=== PATIENT | male | born 1930 | race Caucasian/White ===

== ENCOUNTER 2017-04-17 20:45 | Inpatient (IN) | payer OTHER, MEDICAID ==
[~2017-04-17] VITALS: Ht 172.7 cm; Wt 66.2 kg
[~2017-04-17 20:45] MED LIST: ACET-868 PO; ALEN70TA3 PO; CARV12.5 PO; CEFT1VIA6 IV; DUTA0.5C PO; ENOX80DI SQ; FERR1TAB44 PO; FURO-145 PO; ISOS20TA8 PO; MULT-331 PO; SIMV20TA2 PO; WARF3TAB6 PO
--- NOTE | 2017-04-17 20:45 | NUR ---
PT BBRA FROM HOME WITH C/O "MORE ALTERED THAN USUAL SINCE 1800". PT AAOX1. PT IS CONTRACTED IN THE ARMS AND HANDS. NO OBVIOUS DEFORMITIES NOTED. PT ABLE TO FOLLOW AND TRACK WITH EYES. RESP EVEN AND UNLABORED. NO S/S OF ACUTE DISTRESS NOTED. PT GOWNED AND PLACED ON CARDAIC MONITOR AND POX. SON BEDSIDE WITH PT. AWAITING MD FOR EVAL.
[2017-04-17 21:45] LABS: APPEARANCE,URINE Slightly Cloudy (CLEAR); BILIRUBIN,URINE Negative (NEGATIVE); BLOOD, URINE Trace-intact Ery/uL (NEGATIVE); COLOR,URINE Yellow (YELLOW); KETONES,URINE 15 (NEGATIVE); LEUKOCYTE ESTERASE ,URINE Negative (NEGATIVE); NITRITE, URINE Negative (NEGATIVE); PH,URINE 5.5 (5.0-8.0); PROTEIN,URINE >=300 mg/dl (NEGATIVE); UGLUCOSE Negative (NEGATIVE)
[2017-04-17 21:54] LABS: BACTERIA,URINE Moderate /HPF (None Seen); SQUAMOUS EPITHELIAL CELL,UR Few /HPF (None Seen); WBC,URINE 0-2 /HPF (0-3)
[2017-04-17] MEDS ORDERED: IV NS 0.9% 1,000 ML BAG IV ONE (22:00)
[2017-04-17] MEDS ORDERED: AMIODARONE 150 MG/3 ML VIAL IV ONE ×4 (22:00→22:06)
--- NOTE | 2017-04-17 22:03 | NUR ---
PT TRANSPORTED OT RADIOLOGY FOR CT HEAD.
[2017-04-17 22:13] LABS: EOSINOPHILS % (AUTO) 0.1 % (0.0-6.0); HEMATOCRIT 40 % (39-51); HEMOGLOBIN 13.1 g/dL (13.5-17.5); LYMPHOCYTES # (AUTO) 0.2 /CMM (0.8-4.8); LYMPHOCYTES % (AUTO) 1.5 % (20.0-44.0); MEAN CORPUSCULAR HEMOGLOBIN 30 PG (26.0-33.0); MEAN CORPUSCULAR HGB CONC 33 g/dl (31.0-36.0); MEAN CORPUSCULAR VOLUME 91 fL (80-96); MONOCYTES # (AUTO) 0.2 /CMM (0.1-1.30); MONOCYTES % (AUTO) 1.6 % (2.0-12.0); NEUTROPHILS # (AUTO) 14.2 /CMM (1.8-8.9); NEUTROPHILS % (AUTO) 96.8 % (43.0-81.0); PLATELET COUNT (AUTO) 185 /CMM (150-450); RDW COEFFICIENT OF VARIATION 18.7 (11.5-15.0); RED BLOOD CELL COUNT(AUTO) 4.37 MIL/uL (4.5-6.0); WHITE BLOOD COUNT (AUTO) 14.7 K/uL (4.3-11.0)
[2017-04-17 22:31] LABS: TROPONIN I 0.109 ng/mL (0.00-0.056)
[2017-04-17 22:36] LABS: CARBON DIOXIDE 26 mmol/L (21-32); CHLORIDE 108 mmol/L (98-107); CREATININE 1.4 mg/dL (0.6-1.3); GLUCOSE 112 mg/dL (74-106); SODIUM SERUM 145 mmol/L (136-145); UREA NITROGEN, BLOOD 25 mg/dL (7-18)
[2017-04-17 22:39] LABS: ALANINE AMINOTRANSFERASE 22 U/L (12-78); ALBUMIN 2.9 g/dL (3.4-5.0); ALKALINE PHOSPHATASE 88 U/L (46-116); ASPARTATE AMINOTRANSFERASE 23 U/L (15-37); BILIRUBIN,DIRECT 0.6 mg/dL (0.0-0.2); BILIRUBIN,TOTAL 1.8 mg/dL (0.2-1.0); TOTAL PROTEIN, SERUM 7.5 g/dL (6.4-8.2)
[2017-04-17] MEDS ORDERED: NITROGLYCERIN PACKET 1 GM PACKET TD ONE (23:00)
[2017-04-17] MEDS ORDERED: ASPIRIN 300 MG/SUPP.RECT RC ONE ×2 (23:00→23:21)
[2017-04-17] MEDS ORDERED: LEVOFLOXACIN 750 MG /D5W 150ML PIGGYBACK IV ONE (23:00)
--- NOTE | 2017-04-17 23:07 | NUR ---
[facility] WAS CALLED AND SPOKE TO JUANPABLO, FOR A MD TO MD CALL.
[2017-04-17 23:09] LABS: INR 1.73 (0.87-1.13)
--- NOTE | 2017-04-17 23:10 | NUR ---
Patient is resting comfortably in bed with eyes closed. Easily aroused. VSS
--- NOTE | 2017-04-17 23:18 | NUR ---
ER TALKING TO MAKENNA RANDALL ACNLaura REGARDING PT ADMISSION. WILL CALL FOR REPORT WHEN BED IS AVAILABLE.
[2017-04-17] MEDS ORDERED: LEVOFLOXACIN 750 MG /D5W 150ML 150 ML IV ONE (23:20)
[2017-04-17] MEDS ORDERED: NITROGLYCERIN PACKET 1 GM PACKET ONE (23:20)
--- NOTE | 2017-04-17 23:50 | NUR ---
REPORT GIVEN TO JON REMI FONTAINE FOR INDIO. PT BEING PREPARED FOR TRANSPORT TO ROOM 105. EMT BEDSIDE.
--- NOTE | 2017-04-18 | NUR ---
COUNTY DIRECTOR WELFARE NOTES RECEIVED PATIENT FROM ER VIA GURNEY, TRANSFERRED TO BED, PATIENT TOLERATED TRANSFER WELL. PATIENT A/O X1, NONVERBAL, SOMETIMES GRUNTS WHEN IN PAIN. CURRENTLY ON O2 VIA NC @ 2LPM, TOLERATING WELL FREE FROM ANY S/S OF RESPIRATORY DISTRESS. ON TELEMETRY MONITORING, REVEALING UNCONTROLLED AFIB, CURRENTLY ON AMIODARONE DRIP @ 1MG/MIN. IV SITES PATENT AND INTACT, FLUSHED WITH NS, BOTH IV SITES FREE FROM ANY S/S OF INFILTRATION OR PHLEBITIS. SKIN ASSESSMENT DONE, ALL SKIN ISSUES PHOTOGRAPHED AND DOCUMENTED PER PROTOCOL. CALL LIGHT LEFT WITHIN EASY REACH, BED IN LOWEST AND LOCKED POSITION. WILL CONTINUE TO CLOSELY MONITOR
--- NOTE | 2017-04-18 | NUR ---
RN NOTES PER REPORT FROM ER NURSE MAURICIO, CONTINUE AMIODARONE DRIP
[2017-04-18] MEDS ORDERED: ZOLPIDEM TARTRATE 5 MG TABLET PO PRN (01:00)
[2017-04-18] MEDS ORDERED: ONDANSETRON HCL/PF 4 MG/2 ML VIAL IVP PRN (01:00)
[2017-04-18] MEDS ORDERED: MAGNESIUM HYDROXIDE 30 ML UDC PO PRN (01:00)
[2017-04-18] MEDS ORDERED: ACETAMINOPHEN 325 MG TABLET PO PRN (01:00)
[2017-04-18] MEDS ORDERED: MAG HYDROX/AL HYDROX/SIMETH 30 ML UDC PO PRN (01:00)
[2017-04-18] MEDS ORDERED: ENOXAPARIN SODIUM 40 MG/0.4 ML DISP.SYRIN SQ SCH ×2 (01:00→21:00)
[2017-04-18] MEDS ORDERED: HYDROCODONE/APAP 5/325MG 1 EACH TABLET PO PRN (01:00)
[2017-04-18] MEDS ORDERED: Z GUARD REMEDY 2 OZ OINT TP PRN (01:00)
[2017-04-18] MEDS ORDERED: LEVE500T9 PO (01:10)
[2017-04-18] MEDS: IV NS 0.9% 1,000 ML IV PRN (01:26)
[2017-04-18 01:27] LABS: ABG BASE EXCESS 1.9 mmol/L; ABG OXYGEN SATURATION 96.2 % (92.0-98.5); ABG PCO2 34.6 mmHg (35.0-45.0); ABG PH 7.478 (7.350-7.450); ABG PO2 90.6 mmHg (75.0-100.0); AaDO2 68.2 mmHg; COHb 0.8 % (0.5-1.5); MetHb 0.2 % (0.0-1.5); O2Hb 95.2 % (94.0-97.0); SITE, ABG Right Radial; VENT MODE, BG 2L N/C
[2017-04-18] MEDS ORDERED: CEFTRIAXONE 1 G VIAL ONE (02:14)
[2017-04-18] MEDS: LEVETIRACETAM (500MG) 500 MG in IV NS 0.9% 100 ML IV SCH ×2 (02:30→20:53)
[2017-04-18] MEDS: CEFTRIAXONE 1 G in IV D5W 50 ML IV SCH (02:33)
[2017-04-18] MEDS ORDERED: AMIODARONE 900 MG in IV D5W 500 ML IV PRN (03:30)
[2017-04-18 04:00] VITALS: BP 106/67
[2017-04-18] MEDS ORDERED: LEVETIRACETAM (500MG) 500 MG/5 ML VIAL IV ONE (04:08)
--- NOTE | 2017-04-18 04:46 | NUR ---
RN NOTES AMIODARONE DRIP TITRATED TO 0.5MG/MIN. PATIENT REMAINS IN AFIB, BUT RATE IS BETTER CONTROLLED COMPARED TO WHEN PATIENT ARRIVED IN JON
--- NOTE | 2017-04-18 07:00 | NUR ---
RN CLOSING NOTES PATIENT RESTING IN BED, APPEARS COMFORTABLE. CONTINUES ON AMIODARONE DRIP, REMAINS AFIB, BUT RATE IMPROVED. WILL ENDORSE THE PATIENT TO THE AM SHIFT NURSE FOR INDIO
--- NOTE | 2017-04-18 07:23 | NUR ---
RN NOTES RECEIVED PT FROM PROFESSOR OF SURGERY, A&0X1, MUMBLES WORDS. ON 2L NC SATING WELL NO SOB OR DISTRESS NOTED. A FIB ON THE TELE RAZ HR 90, AMIO DRIP INFUSING. PT CURRENTLY NPO. LFA IV SITE INTACT WITH IVF AT 60ML/HR. LFA 18G IV SITE INTACT WITH AMIO DRIP AT 0.5ML/HR. BED LOCKED AND IN LOWEST POSITION, CALL LIGHT WITHIN REACH, SIDE RAILS UPX3, WILL CONT TO RAZ.
[2017-04-18] MEDS ORDERED: AMIODARONE 900 MG in IV D5W 482 ML IV PRN (07:30)
[2017-04-18 08:00] VITALS: BP 111/83
[2017-04-18] MEDS ORDERED: LEVETIRACETAM (250 MG) 250 MG TABLET PO SCH (09:00)
[2017-04-18] MEDS: MULTIVIT, IRON, MIN NO. 8, FA 1 TAB PO SCH (09:00)
[2017-04-18] MEDS ORDERED: CARVEDILOL 12.5 MG TABLET PO SCH (09:00)
[2017-04-18] MEDS ORDERED: DUTASTERIDE (0.5 MG) 0.5 MG CAPSULE PO SCH (09:00)
--- NOTE | 2017-04-18 09:00 | NUR ---
RN NOTES AMIO DRIP STOPPED BY DR HIGGINS, PT STARTED ON COREG, PT ALLERGIC TO BETA BLOCKERS PER SON. SON CALLED VERIFIED ALLERGY. PT'S SON KELSEY MADE A MISTAKE, PT IS ALLERGIC TO VJ INHIBITORS NOT BETA BLOCKERS. DR HIGGINS AND PHARMACY MADE AWARE.
[2017-04-18 09:47] LABS: MAGNESIUM 2.2 mg/dL (1.8-2.4); PHOSPHORUS 2.5 mg/dL (2.5-4.9)
--- NOTE | 2017-04-18 10:00 | NUR ---
RN NOTES 0900 AM MEDS HELD, WAITING FOR SWALLOW EVAL. SPEECH THERAPIST PAGED.
[2017-04-18] MEDS: CARVEDILOL 12.5 MG TABLET PO SCH ×2 (11:00→20:54)
--- NOTE | 2017-04-18 11:19 | NUR ---
RN NOTES PT FAILED SWALLOW EVAL. AM MEDS HELD. WILL NOTIFY GERIATRIC NURSE ASSISTANT DEMETRIS SILVA.
[2017-04-18 11:27] LABS: THYROID STIMULATING HORMONE 0.883 uIU/mL (0.358-3.74)
[2017-04-18] MEDS: ACETYLCYSTEINE 10% SOLN 400 MG/4 ML VIAL NEB SCH ×3 (11:30→23:30)
[2017-04-18] MEDS: DIGOXIN INJ 0.5 MG/2 ML AMPUL IV SCH ×2 (11:41→17:13)
[2017-04-18 12:00] VITALS: BP 123/86
[2017-04-18] MEDS: IPRATROPIUM NEB FS 0.5 MG/2.5 ML AMPUL.NEB NEB SCH ×2 (13:19→20:07)
[2017-04-18] MEDS ORDERED: DIGO250A9 IV (14:45)
[2017-04-18] MEDS ORDERED: ACETAMINOPHEN 650 MG/SUPP.RECT RC PRN (15:00)
[2017-04-18 16:00] VITALS: BP_SYST 125; BP_SYST 127; BP_DIAS 53; BP_DIAS 82
[2017-04-18] MEDS ORDERED: WARFARIN SODIUM 1 MG TABLET PO SCH (17:00)
--- NOTE | 2017-04-18 19:30 | NUR ---
EDGING CATCHER OPENING NOTES RECEIVED REPORT FROM JOSE FRANCISCO KHALIL. PATIENT A/A/O X1, UNABLE TO MAKE NEEDS KNOWN. BREATHING EVEN & UNLABORED, ON O2 3L VIA NC. NO S/S OF RESPIRATORY DISTRESS. ON TELE W/ CONTROLLED A-FIB, HR 80S-90S. RIGHT FA IV #18 INTACT & PATENT W/ DRESSING CDI & IVF NS @ 60 ML/HR. CURRENTLY ON BEDREST. NO S/S OF PAIN OR DISCOMFORT @ THIS TIME. SAFETY MEASURES IN PLACE W/ SIDE RAILS UP, BED LOCKED & IN LOWEST POSITION & BED ALARM ON. SON @ BEDSIDE. WILL CONTINUE TO MONITOR CLOSELY.
[2017-04-18 20:00] VITALS: BP 132/64
[2017-04-19] VITALS: BP 112/68
[2017-04-19] MEDS: CEFTRIAXONE 1 G in IV D5W 50 ML IV SCH (00:20)
[2017-04-19] MEDS: DIGOXIN INJ 0.5 MG/2 ML AMPUL IV SCH (00:21)
[2017-04-19] MEDS: IPRATROPIUM NEB FS 0.5 MG/2.5 ML AMPUL.NEB NEB SCH ×3 (01:44→14:57)
[2017-04-19 04:00] VITALS: BP 104/64
[2017-04-19 06:25] LABS: BASOPHILS % (AUTO) 0.1 % (0.0-2.0); EOSINOPHILS % (AUTO) 0.1 % (0.0-6.0); HEMATOCRIT 34 % (39-51); HEMOGLOBIN 11.3 g/dL (13.5-17.5); LYMPHOCYTES # (AUTO) 0.4 /CMM (0.8-4.8); LYMPHOCYTES % (AUTO) 3.3 % (20.0-44.0); MEAN CORPUSCULAR HEMOGLOBIN 31 PG (26.0-33.0); MEAN CORPUSCULAR HGB CONC 34 g/dl (31.0-36.0); MEAN CORPUSCULAR VOLUME 91 fL (80-96); MONOCYTES # (AUTO) 0.5 /CMM (0.1-1.30); MONOCYTES % (AUTO) 3.9 % (2.0-12.0); NEUTROPHILS # (AUTO) 10.8 /CMM (1.8-8.9); NEUTROPHILS % (AUTO) 92.6 % (43.0-81.0); PLATELET COUNT (AUTO) 152 /CMM (150-450); RDW COEFFICIENT OF VARIATION 18.9 (11.5-15.0); RED BLOOD CELL COUNT(AUTO) 3.69 MIL/uL (4.5-6.0); WHITE BLOOD COUNT (AUTO) 11.7 K/uL (4.3-11.0)
[2017-04-19 07:08] LABS: CHOLESTEROL 88 mg/dL (<200); HDL CHOLESTEROL 42 mg/dL (40-60); LDL 47 mg/dL (0-99); TRIGLYCERIDES 40 mg/dL (30-150)
[2017-04-19 07:10] LABS: CALCIUM, SERUM 8.3 mg/dL (8.5-10.1); CARBON DIOXIDE 24 mmol/L (21-32); CHLORIDE 112 mmol/L (98-107); CREATININE 1.4 mg/dL (0.6-1.3); GLUCOSE 92 mg/dL (74-106); POTASSIUM 3.4 mmol/L (3.5-5.1); SODIUM SERUM 148 mmol/L (136-145); UREA NITROGEN, BLOOD 28 mg/dL (7-18)
--- NOTE | 2017-04-19 07:13 | NUR ---
FLEET SALES MANAGER NOTES RECEIVED PT ON BED SLEEPING. ALERT ORIENTED X1. ON TELE MONITOR AFIB 70. PT ON NPO. HEAD OF BED ELEVATED. SIDE RAILS UP. CALL LIGHT WITHIN REACH. WILL CONTINUE TO MONITOR PT CLOSELY.
[2017-04-19] MEDS: ACETYLCYSTEINE 10% SOLN 400 MG/4 ML VIAL NEB SCH ×2 (07:16→14:57)
[2017-04-19 08:00] VITALS: BP 122/68
[2017-04-19] MEDS: LEVETIRACETAM (500MG) 500 MG in IV NS 0.9% 100 ML IV SCH (08:53)
[2017-04-19] MEDS: CARVEDILOL 12.5 MG TABLET PO SCH (08:53)
[2017-04-19] MEDS: MULTIVIT, IRON, MIN NO. 8, FA 1 TAB PO SCH (08:54)
[2017-04-19] MEDS: IV NS 0.9% 1,000 ML IV PRN (11:49)
[2017-04-19 12:00] VITALS: BP_SYST 117; BP_SYST 177; BP_DIAS 76
[2017-04-19] MEDS ORDERED: POTASSIUM CHLORIDE 20 MEQ POWDER PACKET PO SCH (13:00)
[2017-04-19 16:00] VITALS: BP 100/68
--- NOTE | 2017-04-19 17:37 | NUR ---
HEAD OF OPERATION AND LOGISTICS NOTES PT FOR TRANSFER TO [facility]. REPORT GIVEN TO
--- NOTE | 2017-04-19 18:36 | NUR ---
PATIENT INSURANCE CLERK NOTES PT DISCHARGED STABLE. TRANSPORTED BY AMBULANCE. REPORT GIVEN. EXIT CARE DONE.
== END 2017-04-19 18:50 | disposition short-term general hospital (02) | DRG 871 ==
LOC: ER 20:47 → TELE1 23:36 → TELE-TD 04-18 00:11 → TELE1 04-18 10:16
PROVIDERS: ADMIT Nurse Practitioner Acute Care; ATTEND Nurse Practitioner Acute Care
DX: A41.9 Sepsis, unspecified organism (principal); G93.41 Metabolic encephalopathy; I21.A1 Myocardial infarction type 2; N17.0 Acute kidney failure with tubular necrosis; E44.0 Moderate protein-calorie malnutrition; J18.9 Pneumonia, unspecified organism; R53.2 Functional quadriplegia; E88.09 Other disorders of plasma-protein metabolism, not elsewhere classified; D68.59 Other primary thrombophilia; R13.10 Dysphagia, unspecified; I13.0 Hypertensive heart and chronic kidney disease with heart failure and stage 1 through stage 4 chronic kidney disease, or unspecified chronic kidney disease; I38 Endocarditis, valve unspecified; N39.0 Urinary tract infection, site not specified; I50.20 Unspecified systolic (congestive) heart failure; I25.10 Atherosclerotic heart disease of native coronary artery without angina pectoris; I48.2 Chronic atrial fibrillation; Z86.73 Personal history of transient ischemic attack (TIA), and cerebral infarction without residual deficits; Z87.440 Personal history of urinary (tract) infections; Z87.891 Personal history of nicotine dependence; F03.90 Unspecified dementia, unspecified severity, without behavioral disturbance, psychotic disturbance, mood disturbance, and anxiety; J32.0 Chronic maxillary sinusitis; E80.6 Other disorders of bilirubin metabolism; N40.1 Benign prostatic hyperplasia with lower urinary tract symptoms; F09 Unspecified mental disorder due to known physiological condition; Z79.01 Long term (current) use of anticoagulants; J40 Bronchitis, not specified as acute or chronic; K05.6 Periodontal disease, unspecified; N18.9 Chronic kidney disease, unspecified; Z68.22 Body mass index [BMI] 22.0-22.9, adult
CPT/HCPCS: 36415; 36600; 70450-TC; 71045-TC; 80048-TC; 80061-TC; 80076-TC; 81000-TC; 82306; 82962-TC; 83605-TC; 83735-TC; 84100-TC; 84439-TC; 84443-TC; 84484-TC; 85025-TC; 85730-TC; 87040-TC; 87081-TC; 87086-TC; 92526; 92611-TC; 93307-TC; A4606; A6402; J0282; J0696; J1160; J1650; J1953; J1956; J7030; J7060; Z7610

== ENCOUNTER 2017-05-20 10:08 | Inpatient (IN) | payer OTHER, MEDICAID ==
[~2017-05-20] VITALS: Ht 170.2 cm; Wt 69.9 kg
[2017-05-20] VITALS (19 sets, daily range): BP systolic 88–116; BP diastolic 50–69
[~2017-05-20 10:08] MED LIST changes: +CARV12.5 GT; -CARV12.5 PO; +CEFT1VIA14 IV; -CEFT1VIA6 IV; +DIGO250A9 IV; -FURO-145 PO; -ISOS20TA8 PO; +LEVE500T9 GT; +SIMV20TA2 GT; -SIMV20TA2 PO; +WARF3TAB59 GT; -WARF3TAB6 PO
--- NOTE | 2017-05-20 10:08 | NUR ---
[id number] FROM HOME: S/P RESPIRATORY FAILURE x 0945AM. LAST SEEEN WELL LAST NIGHT ~ 2200. BS IN FIELD 217. PATIENT ARRIVED ON AMBU-BAG. A/OX 0, HOT TO TOUCH. GTUBE IN PLACE. PLACED ON MONITOR, SAFETY AND COMFORT MEASURES IN PLACE. MD AT BEDSIDE FOR EVAL.
--- NOTE | 2017-05-20 10:15 | NUR ---
NEW IV STARTED ON RFA, 20G. MD AT BEDSIDE FOR INTUBATION: ETOMIDATE/SUCC ADMINISTERED.
--- NOTE | 2017-05-20 10:16 | NUR ---
PATIENT INTUBATED WITH ET 7.5, 22CM AT THE LIP. POSITIVE COLOR CHANGE ON CO2 INDICATOR, BREATH SOUNDS HEARD BILATERALLY. VITALS STABLE. XRAY CALLED FOR CONFIRMATION WELL.
[2017-05-20] MEDS ORDERED: ACETAMINOPHEN 325 MG TABLET PO ONE (10:30)
[2017-05-20] MEDS ORDERED: PROPOFOL 100 ML IV PRN ×3 (10:30→13:30)
[2017-05-20] MEDS ORDERED: ETOMIDATE 2 MG/ML VIAL IV ONE (10:30)
[2017-05-20] MEDS ORDERED: SUCCINYLCHOLINE CHLORIDE 20 MG/ML VIAL IV ONE (10:30)
[2017-05-20] MEDS ORDERED: IV NS 0.9% 1,000 ML BAG IV ONE (10:30)
[2017-05-20] MEDS ORDERED: PIPERACILLIN /TAZOBACTAM 3.375 G in IV D5W 50 ML IV ONE (10:30)
[2017-05-20] MEDS ORDERED: ACETAMINOPHEN ES 500 MG TABLET ONE (10:48)
[2017-05-20 10:49] LABS: BASOPHILS # (AUTO) 0.7 /CMM (0.0-0.2); BASOPHILS % (AUTO) 4.2 % (0.0-2.0); HEMATOCRIT 35 % (39-51); HEMOGLOBIN 11.2 g/dL (13.5-17.5); LYMPHOCYTES # (AUTO) 0.8 /CMM (0.8-4.8); MEAN CORPUSCULAR HGB CONC 32 g/dl (31.0-36.0); MEAN CORPUSCULAR VOLUME 92 fL (80-96); MONOCYTES # (AUTO) 0.5 /CMM (0.1-1.30); NEUTROPHILS # (AUTO) 13.6 /CMM (1.8-8.9); NEUTROPHILS % (AUTO) 87.8 % (43.0-81.0); PLATELET COUNT (AUTO) 249 /CMM (150-450); RDW COEFFICIENT OF VARIATION 16.1 (11.5-15.0); RED BLOOD CELL COUNT(AUTO) 3.75 MIL/uL (4.5-6.0); WHITE BLOOD COUNT (AUTO) 15.6 K/uL (4.3-11.0)
[2017-05-20 11:02] LABS: INR 1.14 (0.85-1.15)
[2017-05-20 11:05] LABS: ALANINE AMINOTRANSFERASE 198 U/L (12-78); ALBUMIN 2.2 g/dL (3.4-5.0); ALKALINE PHOSPHATASE 68 U/L (46-116); ASPARTATE AMINOTRANSFERASE 214 U/L (15-37); BILIRUBIN,DIRECT 0.7 mg/dL (0.0-0.2); BILIRUBIN,TOTAL 1.1 mg/dL (0.2-1.0); CARBON DIOXIDE 27 mmol/L (21-32); CHLORIDE 102 mmol/L (98-107); CREATININE 1.4 mg/dL (0.6-1.3); GLUCOSE 171 mg/dL (74-106); SODIUM SERUM 135 mmol/L (136-145); TOTAL PROTEIN, SERUM 7.5 g/dL (6.4-8.2); UREA NITROGEN, BLOOD 42 mg/dL (7-18)
[2017-05-20 11:09] LABS: POTASSIUM 6.3 mmol/L (3.5-5.1)
[2017-05-20 11:10] LABS: TROPONIN I 0.519 ng/mL (0.00-0.056)
[2017-05-20 11:14] LABS: ABG BASE EXCESS -1.5 mmol/L; ABG OXYGEN SATURATION 96.8 % (92.0-98.5); ABG PCO2 35.9 mmHg (35.0-45.0); ABG PH 7.418 (7.350-7.450); ABG PO2 105.6 mmHg (75.0-100.0); AaDO2 282.7 mmHg; COHb 0.1 % (0.5-1.5); MetHb 0.5 % (0.0-1.5); O2Hb 96.2 % (94.0-97.0); PEEP,BG 5 cm H2O; SITE, ABG Right Radial; VENT MODE, BG A/C; VT, ABG 500 mL
--- NOTE | 2017-05-20 11:21 | NUR ---
PT INTUBATED IN ER AND PLACED ON PB 840 VENTILATOR RR 16, VT 500, FIO2 60%, PEEP 5. ETT SIZE 7.5, 22 CM AT LIPS. VENT ALARM WORKING AND AUDIBLE, RED OUTLET PLUGGED IN, AMBU BAG AT BEDSIDE. PT TOLERATES VENT SETTING.
--- NOTE | 2017-05-20 11:23 | NUR ---
VENT SETTING CONFIRMED WITH DR. STRONG AND TITRATED FIO2 TO 40%.
[2017-05-20] MEDS ORDERED: WARF1TAB86 GT (11:25)
[2017-05-20] MEDS ORDERED: DIGO125T GT (11:25)
[2017-05-20] MEDS ORDERED: SERT100T GT (11:25)
--- NOTE | 2017-05-20 11:40 | NUR ---
propofol drip stopped at this time, patient blood pressure dropping. Placed in trendelenburg, ivf running, will reassess.
[2017-05-20] MEDS ORDERED: NOREPINEPHRINE 8 MG in IV D5W 500 ML IV PRN ×2 (12:00→13:30)
[2017-05-20 12:32] LABS: BAND % (MANUAL) 3 % (0.0-5.0); LYMPHOCYTES % (MANUAL) 1 % (16-48); MONOCYTES % (MANUAL) 6 % (0-11.0); NEUTROPHILS % (MANUAL) 90 (42-76)
--- NOTE | 2017-05-20 12:38 | NUR ---
REPORT GIVEN TO REMI FRITZ FOR INDIO UPON ADMISSION.
--- NOTE | 2017-05-20 13:10 | NUR ---
LEVOPHED NOT ADMINISTERED IN ER, BLOOD PRESSURE WNL. AWARE. PATIENT TRANSPORTED TO ICU 256 VIA ACLS PROTOCOL. RNCATRINA TO PROVIDE INDIO.
--- NOTE | 2017-05-20 13:15 | NUR ---
RN INITIAL NOTES RECEIVED PT INTUBATED, ON VENT. NO RESPIRATORY DISTRESS NOTED. NO SOB NOTED. NO SIGNS OF PAIN NOTED. IV LINES IN PLACE. PT'S SBP ON 90S. FC IN PLACE. NO HEMATURIA NOTED. BODY ASSESSMENT DONE. PICTURES TAKEN AND PLACED IN THE CHART. DR. OVALLES AWARE OF ADMISSION. AWAITING FOR ORDERS. WILL CLOSELY MONITOR.
[2017-05-20 13:19] LABS: APPEARANCE,URINE Cloudy (CLEAR); BILIRUBIN,URINE SMALL (NEGATIVE); BLOOD, URINE Large Ery/uL (NEGATIVE); COLOR,URINE Dark (YELLOW); KETONES,URINE Trace (NEGATIVE); LEUKOCYTE ESTERASE ,URINE Negative (NEGATIVE); NITRITE, URINE Negative (NEGATIVE); PH,URINE 5.5 (5.0-8.0); PROTEIN,URINE >=300 mg/dl (NEGATIVE); UGLUCOSE Negative (NEGATIVE)
[2017-05-20] MEDS: NOREPINEPHRINE 16 MG in IV D5W 500 ML IV PRN ×2 (13:21→21:21)
[2017-05-20] MEDS ORDERED: FEE PK DOSING 1 MIN EA MC ONE (13:29)
[2017-05-20] MEDS ORDERED: SODIUM POLYSTYRENE SULFONATE 15 G/60 ML BOTTLE PO ONE (13:30)
[2017-05-20] MEDS ORDERED: NORMAL SALINE FLUSH 10 ML SYR IV PRN (13:30)
[2017-05-20] MEDS ORDERED: METOPROLOL TARTRATE INJ 5 MG/5 ML AMPUL IVP PRN (13:30)
[2017-05-20] MEDS ORDERED: ACETAMINOPHEN 650 MG/SUPP.RECT RC PRN (13:30)
[2017-05-20] MEDS ORDERED: ALBUTEROL FS 2.5 MG/3 ML VIAL.NEB NEB PRN (13:30)
[2017-05-20] MEDS ORDERED: ACETAMINOPHEN 325 MG TABLET PO PRN (13:30)
[2017-05-20] MEDS ORDERED: ONDANSETRON HCL/PF 4 MG/2 ML VIAL IVP PRN (13:30)
[2017-05-20] MEDS ORDERED: VANCOMYCIN 1 GM in IV NS 0.9% 250 ML IV SCH (13:30)
--- NOTE | 2017-05-20 13:30 | NUR ---
RN NOTES SEEN AND EXAMINED BY DR. OVALLES. PT INTUBATED, ON VENT. NO RESPIRATORY DISTRESS NOTED. NO SOB NOTED. NO SIGNS OF PAIN NOTED. PT REACTS TO PAIN. IV LINES IN PLACE. MD AWARE OF LAB VALUES: WBC 15.6, POTASSIUM 6.3, BUN 42, CREA 1.4. LACTIC 4.3, TROPONIN 0.519. ORDERS NOTED AND CARRIED OUT. MD DISCUSSED PLAN OF CARE WITH SON AT BEDSIDE. WILL MONITOR.
[2017-05-20 13:36] LABS: BACTERIA,URINE Moderate /HPF (None Seen)
[2017-05-20 13:44] LABS: SQUAMOUS EPITHELIAL CELL,UR Moderate /HPF (None Seen)
[2017-05-20] MEDS: VANCOMYCIN 0.75 GM in IV NS 0.9% 250 ML IV SCH (14:53)
[2017-05-20] MEDS ORDERED: WARFARIN SODIUM 1 MG TABLET GT SCH (17:00)
[2017-05-20] MEDS: ZOSYN IVPB 2.25 G in IV D5W 50ml IV SCH (17:05)
--- NOTE | 2017-05-20 17:33 | NUR ---
ANCHOR FAST PLACED ON PT. 7.5 ETT STILL AT 22 CM AT THE LIP. PT ON VENT WITH SAME SETTINGS. VENT ALARMS SET AND AUDIBLE PER POLICY. NO RESP. DISTRESS NOTED AT THIS TIME. VENT PLUGGED INTO RED OUTLET, AMBU BAG AT [facility].
[2017-05-20] MEDS ORDERED: PIPERACILLIN /TAZOBACTAM 3.375 G in IV NS 0.9% 50 ML IV SCH (18:00)
--- NOTE | 2017-05-20 18:41 | NUR ---
RN CLOSING NOTES PT REMAINS INTUBATED, ON VENT. NO RESPIRATORY DISTRESS NOTED. NO SOB NOTED. NO SIGNS OF PAIN NOTED. IV LINES IN PLACE. FC IN PLACE. KEPT CLEAN AND DRY. REPOSITIONED Q2. BLE ELEVATED. WILL ENDORSE FOR CONTINUITY OF CARE.
--- NOTE | 2017-05-20 20:00 | NUR ---
PSYCHIATRIC CLINICAL NURSE SPECIALIST NOTE PT IN BED WITH EYES CLOSED. OPEN EYES ON TACTILE STIMULATION AND ON MINOR PAIN. ON ETT 7.5/22 CM AT LIP, ON VENT TOLERATING THE SETTINGS FINE. ON TELE JUNCTIONAL BRADYCARDIA HR 50. NO DISTRESS OR DISCOMFORT NOTED. NO S/S OF PAIN NOTED. GT INTACT AND PATENT CLAMPED. RFA #20 SL AND LT HAND #20 SL INTACT AND PATENT. PT IS PENDING FOR PICC LINE. KEPT HEELS OFFLOADED AND REPOSITION HIM FOR SKIN MANAGEMENT. ALL NEEDS ATTENDED. VSS. CONTINUE TO MONITOR HIM.
[2017-05-20] MEDS ORDERED: NORMAL SALINE FLUSH 10 ML SYR IV SCH (21:00)
[2017-05-20] MEDS ORDERED: NOREPINEPHRINE 4 MG/4 ML AMPUL IV ONE (21:16)
--- NOTE | 2017-05-20 21:21 | NUR ---
ADVERTISING DISPATCH CLERK NOTE PT STARTED ON LEVOPHED 2MCG/KG/MIN FOR LOW HR IN 40'S. ALSO SON AT BED SIDE. CONTINUE TO MONITOR THE PT.
[2017-05-20 21:46] LABS: CALCIUM, SERUM 7.2 mg/dL (8.5-10.1); CARBON DIOXIDE 24 mmol/L (21-32); CHLORIDE 106 mmol/L (98-107); CREATININE 1.4 mg/dL (0.6-1.3); GLUCOSE 120 mg/dL (74-106); SODIUM SERUM 140 mmol/L (136-145); UREA NITROGEN, BLOOD 43 mg/dL (7-18)
[2017-05-20] MEDS: LEVETIRACETAM SOL (5 ML) 100 MG/ML UDC GT SCH (21:58)
[2017-05-20] MEDS: SIMVASTATIN 20 MG TABLET GT SCH (21:58)
[2017-05-20] MEDS: Z GUARD REMEDY 2 OZ OINT TP SCH (21:59)
[2017-05-20] MEDS: HYDROGEL DRESSING 90 GM TUBE TP SCH (21:59)
[2017-05-21] VITALS (68 sets, daily range): BP systolic 88–127; BP diastolic 25–81
[2017-05-21] MEDS: ZOSYN IVPB 2.25 G in IV D5W 50ml IV SCH ×4 (00:34→17:25)
--- NOTE | 2017-05-21 04:30 | NUR ---
COLOR TECHNICIAN NOTE LAB TACH UNABLE TO DRAW IN AM LABS, PT IS HARD STICK. PT STILL DID NOT HAVE PICC LINE. CHARGE NURSE AWARE.
--- NOTE | 2017-05-21 06:24 | NUR ---
TIRE SERVICE SUPERVISOR NOTE PT IN BED OBTUNDED. SUCTIONED HIM FREQUENTLY, THICK YELLOWISH, BROWNISH SECRETIONS NOTED. ON TELE MONITOR A FIB CONTROLLED HR IN 50"S. F/C INTACT AND PATENT DRAINING YELLOWISH COLOR URINE. PT REMAIN ON VENT TOLERATING THE SETTINGS WELL. REPOSITION HIM Q2H, KEPT HIM DRY AND CLEAN. ALL NEEDS ATTENDED. WILL ENDORSE TO DAY SHIFT NURSE FOR CONTINUE TO CARE.
--- NOTE | 2017-05-21 07:10 | NUR ---
RN INITIAL NOTES RECEIVED PT INTUBATED, ON VENT. NO RESPIRATORY DISTRESS NOTED. NO SOB NOTED. NO SIGNS OF PAIN NOTED. IV LINES IN PLACE. ON LEVO AT 4MCG/MIN. WILL KEEP SBP>90. FC IN PLACE. NO HEMATURIA NOTED. PT COMFORTABLE. BLE ELEVATED. WILL CLOSELY MONITOR.
[2017-05-21 07:31] LABS: BASOPHILS % (AUTO) 0.2 % (0.0-2.0); HEMATOCRIT 30 % (39-51); HEMOGLOBIN 10.1 g/dL (13.5-17.5); LYMPHOCYTES # (AUTO) 0.6 /CMM (0.8-4.8); MEAN CORPUSCULAR HGB CONC 34 g/dl (31.0-36.0); MEAN CORPUSCULAR VOLUME 90 fL (80-96); MONOCYTES # (AUTO) 0.9 /CMM (0.1-1.30); MONOCYTES % (AUTO) 5.8 % (2.0-12.0); NEUTROPHILS # (AUTO) 13.5 /CMM (1.8-8.9); PLATELET COUNT (AUTO) 185 /CMM (150-450); RDW COEFFICIENT OF VARIATION 17.1 (11.5-15.0); RED BLOOD CELL COUNT(AUTO) 3.32 MIL/uL (4.5-6.0)
[2017-05-21 07:44] LABS: INR 1.32 (0.87-1.13)
[2017-05-21 07:51] LABS: DIGOXIN 1.14 ng/mL (0.90-2.00)
[2017-05-21 07:56] LABS: ALANINE AMINOTRANSFERASE 546 U/L (12-78); ALBUMIN 1.9 g/dL (3.4-5.0); ALKALINE PHOSPHATASE 49 U/L (46-116); ASPARTATE AMINOTRANSFERASE 528 U/L (15-37); BILIRUBIN,TOTAL 1.4 mg/dL (0.2-1.0); CALCIUM, SERUM 7.3 mg/dL (8.5-10.1); CARBON DIOXIDE 26 mmol/L (21-32); CHLORIDE 104 mmol/L (98-107); CREATININE 1.3 mg/dL (0.6-1.3); GLUCOSE 129 mg/dL (74-106); PHOSPHORUS 3.3 mg/dL (2.5-4.9); POTASSIUM 3.1 mmol/L (3.5-5.1); SODIUM SERUM 139 mmol/L (136-145); TOTAL PROTEIN, SERUM 6.4 g/dL (6.4-8.2); UREA NITROGEN, BLOOD 41 mg/dL (7-18)
[2017-05-21] MEDS: HYDROGEL DRESSING 90 GM TUBE TP SCH ×2 (08:05→21:16)
[2017-05-21] MEDS: PANTOPRAZOLE 40 MG VIAL IV SCH (08:05)
[2017-05-21] MEDS: VANCOMYCIN 0.75 GM in IV NS 0.9% 250 ML IV SCH (08:05)
[2017-05-21] MEDS: SERTRALINE HCL 50 MG TABLET GT SCH (08:05)
[2017-05-21] MEDS: LEVETIRACETAM SOL (5 ML) 100 MG/ML UDC GT SCH ×2 (08:05→21:15)
[2017-05-21] MEDS: Z GUARD REMEDY 2 OZ OINT TP SCH ×2 (08:05→21:17)
[2017-05-21 08:19] LABS: THYROID STIMULATING HORMONE 2.105 uIU/mL (0.358-3.74)
[2017-05-21 08:41] LABS: ABG BASE EXCESS 0.2 mmol/L; ABG OXYGEN SATURATION 96.8 % (92.0-98.5); ABG PCO2 29.5 mmHg (35.0-45.0); ABG PH 7.503 (7.350-7.450); ABG PO2 110.1 mmHg (75.0-100.0); AaDO2 141.2 mmHg; COHb 0.2 % (0.5-1.5); MetHb 1.4 % (0.0-1.5); O2Hb 95.3 % (94.0-97.0); SITE, ABG Right Radial; VENT MODE, BG AC 16 500 40% +5
--- NOTE | 2017-05-21 09:17 | NUR ---
WOUND CARE CONSULT: PT PRESENTS WITH MULTIPLE WOUNDS AND SKIN ISSUES PRESENT ON ADMISSION INCLUDING UNSTAGEABLE PRESSURE ULCERS TO SACRUM AND RT BUTTOCK, MIDBACK FRAGILE SCAR, LOWER BACK RASH WITH REDNESS TO PERINEUM, RT ARM SKIN TEAR. RT FOOT ESCHAR. ALL SKIN PROTECTION AND WOUND CARE RECOMMENDATIONS DISCUSSED WITH NURSING STAFF. CURRENT REYNALDO SCORE IS 10. PT ON ADAM ISOFLEX LOW AIRLOSS BED. WILL SEELaura DYE MD IN AGREEMENT WITH PLAN OF CARE. Addendum: 05/21/17 at 0920 by TOÑITO ALVAREZ WNDNU Amended: Links added.
--- NOTE | 2017-05-21 09:26 | NUR ---
vent changes per dr mimi pizarro. 14 450 30% +5. Addendum: 05/21/17 at 0928 by ABIGAIL INGRAM RT Amended: Links added.
--- NOTE | 2017-05-21 09:30 | NUR ---
RN NOTES SEEN AND EXAMINED BY DR. GR. PT INTUBATED, ON VENT. NO RESPIRATORY DISTRESS NOTED. NO SOB NOTED. PT NOT ON SEDATION. PT ON LEVO. MD AWARE OF ABG RESULT. ORDERED VENT CHANGES. WILL CONTINUE TO MONITOR.
--- NOTE | 2017-05-21 12:15 | NUR ---
RN NOTES SEEN AND EXAMINED BY DR. HIGGINS. PT INTUBATED, ON VENT. NO RESPIRATORY DISTRESS NOTED. NO SOB NOTED. NO SEDATION. PT OFF LEVO, LATEST BP 102/61. MD AWARE OF LAB VALUES: WBC 12, HGB 10.1, HCT 30, POTASSIUM 3.1, WILL REPLACE WITH KCL 40MEQ IVPB AND TROPONIN 0.828. MD AWARE OF CXR RESULT AND EKG RESULT. MD DISCUSSED PLAN OF CARE WITH SON AT BEDSIDE. ORDERS MADE. WILL CONTINUE TO MONITOR.
[2017-05-21] MEDS: POTASSIUM CL. PREMIX PERIPHER. 50 ML IV SCH ×4 (12:37→15:40)
[2017-05-21] MEDS: IV NS 0.9% 1,000 ML IV PRN (12:37)
--- NOTE | 2017-05-21 12:45 | NUR ---
Social service consult requested by Wound RN Julia to assess home situation since pt. has several unstaged pressure ulcers. ALICE met with pt's son Silver bedside. Pt. is intubated. According to Silver, he lives with the patient at their apartment located at [address] [place] [address] 3 in [facility]. Pt's son Silver's cellphone number is . Silver informed ALICE that he is the 24 hour caregiver for his father. Silver's mother last week. Silver informed ALICE that pt. receives palliative home health through [place] at home on Sunday, Wednesdays and Fridays. Pt. also receives 232 hours in [facility] and Silver (son) is the caregiver. Silver informed ALICE that pt's wounds got worse after his hospitalization at [facility] a few weeks ago. Pt. is bed bound and requires total care at this time. Pt. was ambulatory prior to 2016 which is when he suffered a stroke. Per Silver, pt. has been deteriorating since then. Pt. has a Gtube as well. Pt. has a wheelchair at home. Per Silver, he would like his father discharged back home once he is medically cleared. Silver has requested list of caregiving agencies prior to pt. being discharged home. ALICE informed Silver she will inform case reviewer Vanessa regarding his request. No other social service needs are requested at this time. SW is available, if needed. manager of software development Vanessa was updated with the aforementioned information.
[2017-05-21] MEDS ORDERED: WARFARIN SODIUM 1 MG TABLET GT SCH (17:00)
[2017-05-21] MEDS: WARFARIN SODIUM 1 MG TABLET GT SCH (17:24)
[2017-05-21] MEDS: CLOTRIMAZOLE 1% 15 GM TUBE TP SCH (17:42)
[2017-05-21] MEDS ORDERED: DIGOXIN 0.125 MG TABLET GT SCH (18:00)
--- NOTE | 2017-05-21 18:15 | NUR ---
RN NOTES DR. OVALLES NOTIFIED PT POSITIVE FOR MRSA NARES. PLACED PT ON CONTACT ISOLATION. BACTROBAN ORDERED. SON MADE AWARE.
--- NOTE | 2017-05-21 18:52 | NUR ---
RN CLOSING NOTES PT REMAINS INTUBATED, ON VENT. NO RESPIRATORY DISTRESS NOTED. NO SOB NOTED. NO SIGNS OF PAIN NOTED. IV LINES IN PLACE. IVF INFUSING. GT CLAMPED. FC IN PLACE. TX PROVIDED ORDERED. KEPT CLEAN AND DRY. REPOSITIONED Q2. BLE ELEVATED. WILL ENDORSE FOR CONTINUITY OF CARE.
--- NOTE | 2017-05-21 20:51 | NUR ---
PT RECEIVED INTUBATED 7.5 ETT SECURED AT 22CM AT THE LIP. PT TOLERATING VENT SETTINGS. SX'D FOR MOD AMT OF THICK PALE SECRETIONS. VENT ALARMS SET AND AUDIBLE. AMBU BAG AT BEDSIDE. VENT PLUGGED INTO RED OUTLET. WILL CONTINUE TO MONITOR. Addendum: 05/21/17 at 2054 by TON EPPS RT Amended: Links added.
[2017-05-21] MEDS: SIMVASTATIN 20 MG TABLET GT SCH (21:15)
[2017-05-21] MEDS: MUPIROCIN OINT 2% 22 GM TUBE SCH (21:17)
[2017-05-22] VITALS (44 sets, daily range): BP systolic 93–125; BP diastolic 51–84
[2017-05-22] MEDS: ZOSYN IVPB 2.25 G in IV D5W 50ml IV SCH ×2 (00:09→05:49)
[2017-05-22] MEDS: IV NS 0.9% 1,000 ML IV PRN (02:09)
[2017-05-22] MEDS: VANCOMYCIN 0.75 GM in IV NS 0.9% 250 ML IV SCH ×2 (02:09→20:20)
[2017-05-22 05:15] LABS: WHITE BLOOD COUNT (AUTO) 12.8 K/uL (4.3-11.0)
[2017-05-22 05:16] LABS: BASOPHILS % (AUTO) 0.1 % (0.0-2.0); EOSINOPHILS % (AUTO) 0.5 % (0.0-6.0); HEMATOCRIT 28 % (39-51); HEMOGLOBIN 9.3 g/dL (13.5-17.5); LYMPHOCYTES # (AUTO) 0.5 /CMM (0.8-4.8); MEAN CORPUSCULAR HGB CONC 33 g/dl (31.0-36.0); MEAN CORPUSCULAR VOLUME 91 fL (80-96); MONOCYTES # (AUTO) 0.8 /CMM (0.1-1.30); MONOCYTES % (AUTO) 6.2 % (2.0-12.0); NEUTROPHILS # (AUTO) 11.4 /CMM (1.8-8.9); NEUTROPHILS % (AUTO) 89.2 % (43.0-81.0); PLATELET COUNT (AUTO) 162 /CMM (150-450); RDW COEFFICIENT OF VARIATION 17.1 (11.5-15.0); RED BLOOD CELL COUNT(AUTO) 3.09 MIL/uL (4.5-6.0)
[2017-05-22 05:34] LABS: ALANINE AMINOTRANSFERASE 475 U/L (12-78); ALBUMIN 1.7 g/dL (3.4-5.0); ALKALINE PHOSPHATASE 49 U/L (46-116); ASPARTATE AMINOTRANSFERASE 284 U/L (15-37); BILIRUBIN,TOTAL 1.3 mg/dL (0.2-1.0); CALCIUM, SERUM 6.9 mg/dL (8.5-10.1); CARBON DIOXIDE 23 mmol/L (21-32); CHLORIDE 105 mmol/L (98-107); CREATININE 1.1 mg/dL (0.6-1.3); GLUCOSE 98 mg/dL (74-106); MAGNESIUM 2.5 mg/dL (1.8-2.4); PHOSPHORUS 2.6 mg/dL (2.5-4.9); POTASSIUM 2.9 mmol/L (3.5-5.1); SODIUM SERUM 139 mmol/L (136-145); TOTAL PROTEIN, SERUM 5.7 g/dL (6.4-8.2); UREA NITROGEN, BLOOD 34 mg/dL (7-18)
[2017-05-22 05:44] LABS: TROPONIN I 0.405 ng/mL (0.00-0.056)
--- NOTE | 2017-05-22 08:25 | NUR ---
rn notes received pt intubated with vent settings tolerated well. pt opens eyes to verbal stimuli. noted with pink tinged thick secretions. gt remains clamped. afib on the monitor. positioned for comfort with bsr up, both heels kept offloaded. ivf infusing well to patent iv line. no indication of any discomfort noted. jaron washington
[2017-05-22] MEDS: HYDROGEL DRESSING 90 GM TUBE TP SCH ×2 (09:01→21:05)
[2017-05-22] MEDS: MUPIROCIN OINT 2% 22 GM TUBE SCH ×2 (09:02→21:05)
[2017-05-22] MEDS: LEVETIRACETAM SOL (5 ML) 100 MG/ML UDC GT SCH ×2 (09:02→21:05)
[2017-05-22] MEDS: SERTRALINE HCL 50 MG TABLET GT SCH (09:02)
[2017-05-22] MEDS: PANTOPRAZOLE 40 MG VIAL IV SCH (09:02)
[2017-05-22] MEDS: Z GUARD REMEDY 2 OZ OINT TP SCH ×2 (09:03→21:06)
[2017-05-22] MEDS: NEOMY SULF/BACITRAC ZN/POLY 15 GM TUBE TP SCH (09:15)
[2017-05-22 09:26] LABS: INR 1.52 (0.87-1.13)
[2017-05-22 09:43] LABS: ABG BASE EXCESS -0.5 mmol/L; ABG OXYGEN SATURATION 96.3 % (92.0-98.5); ABG PCO2 29.7 mmHg (35.0-45.0); ABG PH 7.492 (7.350-7.450); ABG PO2 92.1 mmHg (75.0-100.0); AaDO2 86.9 mmHg; COHb 0.3 % (0.5-1.5); MetHb 0.6 % (0.0-1.5); O2Hb 95.4 % (94.0-97.0); PEEP,BG 5 cm H2O; SITE, ABG Right Radial; VT, ABG 450 mL
[2017-05-22] MEDS: PIPERACILLIN /TAZOBACTAM 3.375 G in IV D5W 50 ML IV SCH ×3 (11:24→23:27)
[2017-05-22] MEDS: POTASSIUM CHLORIDE 20 MEQ POWDER PACKET GT SCH ×3 (11:24→13:53)
[2017-05-22] MEDS: LACTOBACILLUS RHAMNOSUS GG 1 EACH CAP.SPRINK GT SCH (16:37)
[2017-05-22] MEDS: CLOTRIMAZOLE 1% 15 GM TUBE TP SCH ×2 (16:37→17:00)
[2017-05-22] MEDS ORDERED: WARFARIN SODIUM 1 MG TABLET GT SCH (17:00)
--- NOTE | 2017-05-22 17:16 | NUR ---
RN NOTES LOTRIMIN AM DOSE ADMINISTERED LATE PM; 5 PM DOSE HELD
--- NOTE | 2017-05-22 17:35 | NUR ---
RT NOTE: PATIENT RECEIVED ORALLY INTUBATED WITH 7.5 ETT SECURED AT 22CM MID LIP LINE WITH BITE BLOCK IN PLACE. ETT MOVED FROM LEFT TO RIGHT SIDE OF MOUTH THROUGHOUT SHIFT. VENT ALARMS VERIFIED AND AUDIBLE. SUCTIONED AND LAVAGED MODERATE-LARGE AMOUNTS OF THICK BARON/BLOODY SECRETIONS. NURSE NOTIFIED. VENT PLUGGED INTO RED OUTLET. AMBU BAG AT [facility].
--- NOTE | 2017-05-22 19:08 | NUR ---
rn notes no significant changes noted, turned and repositioned with both heels kept offloaded. all meds given, gt clamped. et in place with vent settings tolerated well. hob kept elevated; safety ensured. will endorse to next shift for continuity of care in stable conditiion
--- NOTE | 2017-05-22 20:00 | NUR ---
SPECIFICATIONS CHECKER NOTES Received patient open eyes to verbal stimuli.VS stable.On mechanical vent support on AC mode. Vent settings well tolerated.Suction small amount zarco secretions.NPO status with gt clamped. FC to gravity.Incontinent of stool.Perineal care done and skin care done.Turned and repositioned to comfort offloading pressure points.Patient son Silver visiting and updated of patient status. Verbalized understanding.No distress noted.Contact Isolation precaution for MRSA nares implemented.
[2017-05-22] MEDS ORDERED: MUPIROCIN OINT 2% 22 GM TUBE SCH (21:00)
[2017-05-22] MEDS: SIMVASTATIN 20 MG TABLET GT SCH (21:06)
[2017-05-23] VITALS (28 sets, daily range): BP systolic 112–153; BP diastolic 57–97
--- NOTE | 2017-05-23 | NUR ---
Patient resting.VS stable.Turned and repositioned.
[2017-05-23 05:06] LABS: CALCIUM, SERUM 7.1 mg/dL (8.5-10.1); CARBON DIOXIDE 24 mmol/L (21-32); CHLORIDE 105 mmol/L (98-107); CREATININE 1.1 mg/dL (0.6-1.3); GLUCOSE 88 mg/dL (74-106); POTASSIUM 3.2 mmol/L (3.5-5.1); SODIUM SERUM 139 mmol/L (136-145); UREA NITROGEN, BLOOD 28 mg/dL (7-18)
[2017-05-23] MEDS: PIPERACILLIN /TAZOBACTAM 3.375 G in IV D5W 50 ML IV SCH ×4 (05:36→23:34)
--- NOTE | 2017-05-23 06:00 | NUR ---
Patient resting.VS remain stable.Afib 40's,50's,60's.No distress noted.AM care done. Complete linens changed.Turned and repositioned.All due medications administered. For weaning today.Patient son wants to be present during this procedure.Will endorse to AM shift RN for INDIO.
--- NOTE | 2017-05-23 07:45 | NUR ---
ICU/RN - Initial Notes Received pt orally intubated to mechanical ventilator with settings as ordered. Pt alert with eyes open, tracks. On tele reading Afib 50s. Gt kept clamped, as ordered. Holliday catheter intact draining urine to gravity. Safety and comfort measures in place. Will continue to monitor pt closely.
[2017-05-23] MEDS: LEVETIRACETAM SOL (5 ML) 100 MG/ML UDC GT SCH ×2 (08:00→21:53)
[2017-05-23] MEDS: SERTRALINE HCL 50 MG TABLET GT SCH (08:00)
[2017-05-23] MEDS: LACTOBACILLUS RHAMNOSUS GG 1 EACH CAP.SPRINK GT SCH ×2 (08:00→16:13)
[2017-05-23] MEDS: PANTOPRAZOLE 40 MG VIAL IV SCH (08:00)
[2017-05-23] MEDS: NEOMY SULF/BACITRAC ZN/POLY 15 GM TUBE TP SCH (08:00)
[2017-05-23] MEDS: CLOTRIMAZOLE 1% 15 GM TUBE TP SCH ×2 (08:00→16:24)
[2017-05-23] MEDS ORDERED: DC PROPOFOL WHEN EXTUBATED XX PRN (08:00)
[2017-05-23] MEDS: HYDROGEL DRESSING 90 GM TUBE TP SCH ×2 (08:01→21:55)
[2017-05-23] MEDS: Z GUARD REMEDY 2 OZ OINT TP SCH ×2 (08:01→21:54)
[2017-05-23] MEDS: MUPIROCIN OINT 2% 22 GM TUBE SCH ×2 (08:01→21:55)
--- NOTE | 2017-05-23 08:20 | NUR ---
ICU/RN - Notes Pt's son Silver at bedside. Pt alert and awake, placed on SIMV mode by RT Lino. Will continue to monitor pt.
--- NOTE | 2017-05-23 09:45 | NUR ---
ICU/RN - Benito Maya at bedside per family request. Addendum: 05/23/17 at 1320 by TRINI RIVAS RN WRONG PATIENT DOCUMENTED. DISREGARD NOTE ABOVE.
[2017-05-23 10:04] LABS: ABG BASE EXCESS 0.1 mmol/L; ABG OXYGEN SATURATION 96.5 % (92.0-98.5); ABG PCO2 33.6 mmHg (35.0-45.0); ABG PH 7.462 (7.350-7.450); ABG PO2 96.9 mmHg (75.0-100.0); AaDO2 77.5 mmHg; COHb 0.3 % (0.5-1.5); MetHb 0.5 % (0.0-1.5); O2Hb 95.7 % (94.0-97.0); PEEP,BG 5 cm H2O; SITE, ABG Left Brachial; VENT MODE, BG SIMV 4 / PS 12; VT, ABG 450 mL
--- NOTE | 2017-05-23 10:05 | NUR ---
ICU/RN - Notes Pt extubated by RT per Dr Chan's orders, placed on O2 via nasal cannula @ 4lpm. Pt's son at bedside. Will continue to monitor.
[2017-05-23] MEDS: POTASSIUM CHLORIDE 20 MEQ POWDER PACKET GT SCH ×2 (11:05→12:38)
[2017-05-23] MEDS: FUROSEMIDE 40 MG/4 ML VIAL IV SCH ×3 (11:05→18:02)
[2017-05-23 11:16] LABS: BASOPHILS % (AUTO) 0.1 % (0.0-2.0); EOSINOPHILS % (AUTO) 0.5 % (0.0-6.0); HEMATOCRIT 29 % (39-51); HEMOGLOBIN 9.6 g/dL (13.5-17.5); LYMPHOCYTES # (AUTO) 0.6 /CMM (0.8-4.8); MEAN CORPUSCULAR HGB CONC 33 g/dl (31.0-36.0); MEAN CORPUSCULAR VOLUME 92 fL (80-96); MONOCYTES # (AUTO) 0.7 /CMM (0.1-1.30); MONOCYTES % (AUTO) 5.9 % (2.0-12.0); NEUTROPHILS # (AUTO) 9.8 /CMM (1.8-8.9); NEUTROPHILS % (AUTO) 88.5 % (43.0-81.0); PLATELET COUNT (AUTO) 185 /CMM (150-450); RDW COEFFICIENT OF VARIATION 17.5 (11.5-15.0); RED BLOOD CELL COUNT(AUTO) 3.17 MIL/uL (4.5-6.0); WHITE BLOOD COUNT (AUTO) 11.1 K/uL (4.3-11.0)
[2017-05-23 11:21] LABS: ALBUMIN 1.9 g/dL (3.4-5.0); BILIRUBIN,DIRECT 0.7 mg/dL (0.0-0.2); BILIRUBIN,TOTAL 1.4 mg/dL (0.2-1.0); TOTAL PROTEIN, SERUM 6.1 g/dL (6.4-8.2)
[2017-05-23 11:26] LABS: INR 2.02 (0.87-1.13)
[2017-05-23] MEDS: POTASSIUM CL. PREMIX PERIPHER. 50 ML IV SCH ×4 (11:43→16:24)
--- NOTE | 2017-05-23 13:18 | NUR ---
ICU/RN - Notes Comfort measures in place. Pt started on Morphine gtt, in no acute distress. Will proceed with extubation when pt comfortable on drip. Addendum: 05/23/17 at 1320 by TRINI RIVAS RN WRONG PATIENT DOCUMENTED. DISREGARD NOTE ABOVE.
[2017-05-23] MEDS: FIBERSOURCE HN 1,000 ML BOTTLE GT PRN (13:42)
[2017-05-23] MEDS: VANCOMYCIN 0.75 GM in IV NS 0.9% 250 ML IV SCH (15:09)
[2017-05-23] MEDS: WARFARIN SODIUM 1 MG TABLET GT SCH (16:18)
--- NOTE | 2017-05-23 18:53 | NUR ---
ICU/RN - Closing Notes Pt tolerating nasal cannula O2 @ 4lpm in no acute distress.
--- NOTE | 2017-05-23 19:30 | NUR ---
IMMUNOLOGY TEACHER: RECEIVED PT WT EYES CLOSED, ABLE TO OPEN EYES WT PAIN STIMULI. UNABLE TO FOLLOW SIMPLE COMMANDS. ON S/P EXTUBATION AND ON 4L 02 VIA NC WT NO ACUTE DISTRESS. NO EVIDENCE OF DISCOMFORT. PULSE OXIMETER READING SHOWS NOT IN GOOD WAVEFORM BUT IS 94% AND ABOVE ONCE FIXED/IN PLACE. CONTROLLED A. FIB ON BELT WEAVER. AFEBRILE. BP WNL. ON GTF AT 20ML/HR WT NO RESIDUAL AND WILL INCREASE RATE CHENCHO. TILL REACH MAX. GOAL RATE OF 60ML/HR. NO S/S OF INFILTRATION ON IV SITES. F/C PATENT AND INTACT DRAINING CLEAR YELLOW URINE TO GRAVITY. HOB AT 45 DEGREES. ASPIRATION AND SEIZURE PRECAUTIONS NOTED AT ALL TIMES. WILL CONTINUE TO MONITOR.
[2017-05-23] MEDS: SIMVASTATIN 20 MG TABLET GT SCH (21:53)
[2017-05-24] VITALS (17 sets, daily range): BP systolic 103–139; BP diastolic 51–74
--- NOTE | 2017-05-24 01:05 | NUR ---
ADJUNCT PHYSICAL EDUCATION INSTRUCTOR: STILL A. FIB WT HR IN THE 40s, 50s TO 60s. NO SIGNIFICANT INDIO. GTF TOLERATING WELL.
--- NOTE | 2017-05-24 04:00 | NUR ---
VENEER JOINTER OPERATOR: BED BATH GIVEN AND TOLERATED FAIRLY. LINENS CHANGED.
[2017-05-24 05:15] LABS: BASOPHILS % (AUTO) 0.2 % (0.0-2.0); EOSINOPHILS % (AUTO) 0.7 % (0.0-6.0); HEMATOCRIT 30 % (39-51); HEMOGLOBIN 10.2 g/dL (13.5-17.5); LYMPHOCYTES # (AUTO) 0.6 /CMM (0.8-4.8); LYMPHOCYTES % (AUTO) 4.7 % (20.0-44.0); MEAN CORPUSCULAR HGB CONC 34 g/dl (31.0-36.0); MEAN CORPUSCULAR VOLUME 92 fL (80-96); MONOCYTES # (AUTO) 0.8 /CMM (0.1-1.30); MONOCYTES % (AUTO) 6.6 % (2.0-12.0); NEUTROPHILS # (AUTO) 10.5 /CMM (1.8-8.9); NEUTROPHILS % (AUTO) 87.8 % (43.0-81.0); PLATELET COUNT (AUTO) 234 /CMM (150-450); RED BLOOD CELL COUNT(AUTO) 3.31 MIL/uL (4.5-6.0); WHITE BLOOD COUNT (AUTO) 11.9 K/uL (4.3-11.0)
[2017-05-24 05:46] LABS: ALANINE AMINOTRANSFERASE 441 U/L (12-78); ALKALINE PHOSPHATASE 65 U/L (46-116); ASPARTATE AMINOTRANSFERASE 201 U/L (15-37); BILIRUBIN,TOTAL 1.2 mg/dL (0.2-1.0); CALCIUM, SERUM 7.4 mg/dL (8.5-10.1); CARBON DIOXIDE 29 mmol/L (21-32); CHLORIDE 102 mmol/L (98-107); CREATININE 1.2 mg/dL (0.6-1.3); GLUCOSE 127 mg/dL (74-106); MAGNESIUM 1.9 mg/dL (1.8-2.4); PHOSPHORUS 2.6 mg/dL (2.5-4.9); SODIUM SERUM 139 mmol/L (136-145); TOTAL PROTEIN, SERUM 6.4 g/dL (6.4-8.2); UREA NITROGEN, BLOOD 23 mg/dL (7-18)
[2017-05-24] MEDS: PIPERACILLIN /TAZOBACTAM 3.375 G in IV D5W 50 ML IV SCH ×2 (06:14→11:55)
--- NOTE | 2017-05-24 06:50 | NUR ---
RFID SYSTEMS ENGINEER: STILL AT 4L 02 VIA NC WT NO ACUTE DISTRESS. NO EVIDENCE OF DISCOMFORT. GTF NOW AT 50CC/HR WT NO RESIDUAL. HOB AT 35 DEGREES. VS WITHIN HIS BASELINE.
--- NOTE | 2017-05-24 07:51 | NUR ---
INITIAL GAS PUMP ATTENDANT NOTE RCVD PT SLEEPING IN BED, NOT RESPONDING TO NAME OR FOLLOWING SIMPLE COMMANDS. ABLE TO OPEN EYES TO PAINFUL STIMULI AND VERBALIZED PAIN. AFIB ON TELE. TOLERATING O2 VIA NC POST-EXTUBATION, UNABLE TO CLEAR SECRETIONS INDEPENDENTLY. PT WAS SUCTIONED. G-TUBE PLACEMENT VERIFIED BY AUSCULTATION/ASPIRATION NO RESIDUAL OBTAINED. TUBE FEEDING RATE INCREASED TO 55ML/HR FROM 50ML/HR. RAND TO GRAVITY DRAINING PALE, CLOUDY URINE. LEFT SHOULDER IV SITE C/D/I/PATENT. NO S/O INFILTRATION/PHLEBITIS OBSERVED UPON FLUSHING. WILL CONTINUE TO MONITOR PT FOR SAFETY AND COMFORT. CALL LIGHT WITHIN REACH. BED IN LOW AND LOCKED POSITION.
[2017-05-24] MEDS: VANCOMYCIN 0.75 GM in IV NS 0.9% 250 ML IV SCH (08:43)
[2017-05-24] MEDS: LACTOBACILLUS RHAMNOSUS GG 1 EACH CAP.SPRINK GT SCH (08:43)
[2017-05-24] MEDS: PANTOPRAZOLE 40 MG VIAL IV SCH (08:44)
[2017-05-24] MEDS: SERTRALINE HCL 50 MG TABLET GT SCH (08:44)
[2017-05-24] MEDS: LEVETIRACETAM SOL (5 ML) 100 MG/ML UDC GT SCH (08:44)
[2017-05-24] MEDS: Z GUARD REMEDY 2 OZ OINT TP SCH (08:45)
[2017-05-24] MEDS: MUPIROCIN OINT 2% 22 GM TUBE SCH (08:45)
[2017-05-24] MEDS: NEOMY SULF/BACITRAC ZN/POLY 15 GM TUBE TP SCH (08:45)
[2017-05-24] MEDS: HYDROGEL DRESSING 90 GM TUBE TP SCH (08:45)
[2017-05-24] MEDS: CLOTRIMAZOLE 1% 15 GM TUBE TP SCH (08:45)
[2017-05-24] MEDS ORDERED: POTASSIUM CHLORIDE 20 MEQ POWDER PACKET GT ONE (10:30)
--- NOTE | 2017-05-24 11:42 | NUR ---
CHILDREN'S LITERATURE PROFESSOR NOTE PT CLEARED TO TRANSFER TO [facility] PER DR. GR. ROBERT IRIZARRY IN UNIT INFORMED AND DC NOTE DONE. RCVD CALL FROM JOVITA, MIDDLE SCHOOL DIRECTOR FROM [facility] REQUESTING REPORT. PT'S INFORMATION PROVIDED. PT'S SON, KELSEY AT BEDSIDE UPDATED ON PT'S CONDITION AND PUT ON THE PHONE WITH JOVITA TO CHOOSE [facility] LOCATION WHERE PT WILL BE TRANSFERRED.
[2017-05-24] MEDS: FIBERSOURCE HN 1,000 ML BOTTLE GT PRN (13:34)
[2017-05-24 14:02] LABS: INR 2.93 (0.87-1.13)
--- NOTE | 2017-05-24 15:16 | NUR ---
CHESTNUT TANNER NOTE SECOND CALL MADE TO [facility] TO GIVE REPORT FOR TRANSFER. LEFT PHONE NUMBER TO BE CALLED BACK. PER GILDARDO FROM UR DEPARTMENT PT WILL GO TO TELE UNIT ROOM 5229 PHONE # [phone]. PT SCHEDULED TO BE PICKED UP AT 1600 AND Trav VALDIVIA WILL BE ACCEPTING PT. WILL F/U.
--- NOTE | 2017-05-24 16:36 | NUR ---
PHYSICALLY IMPAIRED TEACHER NOTE PT TRANSFERRED TO [facility] ROOM 5229. REPORT CALLED TO REMI BURDICK. PT SHOWING NO S/O DISTRESS, SON AT BEDSIDE. VITAL SIGNS STABLE. RAND CATH EMPTIED OUTPUT ENTERED IN FLOW SHEET. G-TUBE CLAMPED. CONTINUES TO TOLERATE O2 VIA NC AND REMAINS ON A-FIB ON TELE. BELONGINGS WERE TAKEN BY PT'S SON, KELSEY BELONGINGS SHEET SIGNED. DISCHARGE INSTRUCTIONS DISCUSSED WITH KELSEY, WHO ACKNOWLEDGED RECOMMENDATIONS. PRINTED EDUCATION MATERIALS GIVEN TO HIM FOR FUTURE REFERENCE. PT TRANSPORTED VIA AMBULANCE WITH LEFT SHOULDER IV SITE IN PLACE.
== END 2017-05-24 16:30 | disposition short-term general hospital (02) | DRG 871 ==
LOC: ER 10:10 → ICU 12:56
PROVIDERS: ADMIT Internal Medicine; ATTEND Internal Medicine
PROC: 5A1945Z Respiratory Ventilation, 24-96 Consecutive Hours (ICD-10-PCS; principal; 2017-05-20)
PROC: 0BH18EZ Insertion of Endotracheal Airway into Trachea, Via Natural or Artificial Opening Endoscopic (ICD-10-PCS; 2017-05-20)
DX: A41.9 Sepsis, unspecified organism (principal); G93.41 Metabolic encephalopathy; I21.A1 Myocardial infarction type 2; J96.01 Acute respiratory failure with hypoxia; E43 Unspecified severe protein-calorie malnutrition; J15.6 Pneumonia due to other Gram-negative bacteria; N17.0 Acute kidney failure with tubular necrosis; R65.21 Severe sepsis with septic shock; K72.00 Acute and subacute hepatic failure without coma; L89.150 Pressure ulcer of sacral region, unstageable; D68.59 Other primary thrombophilia; E87.2 Acidosis; E87.5 Hyperkalemia; E86.1 Hypovolemia; I48.0 Paroxysmal atrial fibrillation; Z93.1 Gastrostomy status; F03.90 Unspecified dementia, unspecified severity, without behavioral disturbance, psychotic disturbance, mood disturbance, and anxiety; N18.9 Chronic kidney disease, unspecified; Z86.73 Personal history of transient ischemic attack (TIA), and cerebral infarction without residual deficits; E78.5 Hyperlipidemia, unspecified; I25.10 Atherosclerotic heart disease of native coronary artery without angina pectoris; N40.0 Benign prostatic hyperplasia without lower urinary tract symptoms; R62.7 Adult failure to thrive; Z87.440 Personal history of urinary (tract) infections; I12.9 Hypertensive chronic kidney disease with stage 1 through stage 4 chronic kidney disease, or unspecified chronic kidney disease; E88.09 Other disorders of plasma-protein metabolism, not elsewhere classified; R13.10 Dysphagia, unspecified; Z68.24 Body mass index [BMI] 24.0-24.9, adult; R74.0 Nonspecific elevation of levels of transaminase and lactic acid dehydrogenase [LDH]; F09 Unspecified mental disorder due to known physiological condition; S41.111A Laceration without foreign body of right upper arm, initial encounter; X58.XXXA Exposure to other specified factors, initial encounter; Y93.9 Activity, unspecified; Y92.009 Unspecified place in unspecified non-institutional (private) residence as the place of occurrence of the external cause; L89.310 Pressure ulcer of right buttock, unstageable; L98.8 Other specified disorders of the skin and subcutaneous tissue; L97.519 Non-pressure chronic ulcer of other part of right foot with unspecified severity; L89.890 Pressure ulcer of other site, unstageable; J32.9 Chronic sinusitis, unspecified
CPT/HCPCS: 31720; 36415; 36600; 71045-TC; 80048-TC; 80053-TC; 80076-TC; 80162-TC; 80202-TC; 81000-TC; 82728-TC; 82803-TC; 83540-TC; 83605-TC; 83735-TC; 84100-TC; 84134-TC; 84443-TC; 84484-TC; 85025-TC; 85610-TC; 85730-TC; 87040-TC; 87081-TC; 87086-TC; 94002-TC; 94003-TC; 94762-TC; 94799-TC; A4216; A4606; A6248; A6402; C1751; C9113; J0330; J1940; J1953; J2543; J3370; J3480; J3490; J7030; J7040; J7050; J7060; Z7610